=== PATIENT | male | born 1995 | race Caucasian/White ===

== ENCOUNTER 2018-10-24 18:32 | Emergency (ER) | payer SELFPAY ==
[~2018-10-24] VITALS: Ht 188 cm; Wt 77.1 kg
--- OUTSIDE RECORDS SUMMARY | 2018-10-24 18:39 | XMS REPORT ---
Author Author NORA STERLING [facility] eClinicalWorks Address Unknown Phone Unavailable Care Team Providers Care Adult Manager Name Role Phone NORA STERLING CP Unavailable Allergies No Known Allergies Problems Problem Type Condition Code Onset Dates Condition Status Assessment Visit for TB skin test Z11.1 Active Medications No Known Medications Procedures Procedure Coding System Code Date TB INTRADERMAL TEST CPT-4 37117 Aug 08, 2016 Results Name Result Date Reference Range Unit Abnormality Flag TB INTRADERMAL ----INDURATION (mm) 0mm 20160810 0 - 15 mm ----Time Read 1625 20160810 ----Date read 08/10/1620160810 ----Injected by maximiliano Houser [id number] ----Exp. date 20160810 ----Read by Uvaldo 20160810 ----Date injected 08/08/201620160810 ----RESULTS (Pos/Neg) Negative 20160810 ----Time Injected 13:30 20160810 ----Site left arm [id number] ----Lot # [id number] Summary Purpose eClinicalWorks Submission
--- NOTE | 2018-10-24 19:47 | ED GU-Male ---
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 He is not having any swelling redness bruising or dyspareunia or dysuria. He is however having some pain still. He is not used any Tylenol Motrin ice heat etc. He does not have any significant medical problems or take any routine medicines. He occasionally smokes marijuana but he does not smoke or drink cigarettes or alcohol. He just wants to make sure that his groins going to be okay. He rates the pain as a 5 out of 10. Allergies and Home Medications Patient Home Medication List Home Medication List Reviewed: Yes Review of Systems Review of Systems Constitutional: No chills, No diaphoresis EENTM: No ear discharge, No hearing loss Respiratory: No cough, No dyspnea on exertion Cardiovascular: No chest pain, No edema Gastrointestinal: No abdominal pain, No constipation, No diarrhea Past Lxzqqgl-Tcmajt-Vzvifm Hx Patient Social History Alcohol Use: Denies Use Recreational Drug Use: Yes Drug of Choice: marijuana Smoking Status: Never a Smoker Recent Foreign Travel: No Contact w/Someone Who Travel: No Physical Exam Vital Signs Capillary Refill : Height, Weight, BMI Height: '" Weight: lbs. oz. kg; BMI Method: General Appearance: WD/WN, no apparent distress HEENT: PERRL/EOMI, pharynx normal Neck: normal inspection Cardiovascular: normal peripheral pulses, regular rate, rhythm, no edema Genital/Rectal: normal genital exam, other (testicles are even, symmetric, non- ecchymotic nonerythematous nontender and there are no masses palpable. There are no inguinal hernias bilaterally.) Progress/Results/Core Measures Suspected Sepsis SIRS Temperature: Pulse: Respiratory Rate: Blood Pressure / Mean: Results/Orders Vital Signs/I&O Capillary Refill : Progress Note : Time: 19:46 Progress Note No evidence or risk factors for testicular torsion. No evidence of a hematocele or hematoma. We'll recommend conservative therapy and follow-up with urology as needed. Departure Impression Primary Impression: Pain in testicle due to trauma Disposition: HOME, SELF-CARE Condition: Stable Departure-Patient Inst. Decision time for Depature: 19:47 Referrals: NO,LOCAL PHYSICIAN (PCP) Primary Care Physician JENNIE DE JESUS MD Patient Instructions: How to Perform a Testicular Self-Exam Add. Discharge Instructions: If your pain does not improve over the next week or if you start to feel a lump or there is change of color then you should follow-up with the urologist promptly. If your pain is intolerable then you should return to the nearest ER for further evaluation. Use 1000 mg of Tylenol every 8 hours in addition to 800 mg of ibuprofen every 8 hours as needed for pain. You can also use heat and ice to the groin. Work/School Note: Work Release Form Date Seen in the Emergency Department: Oct 24, 2018 Return to Work: Oct 24, 2018 Restrictions: No Restrictions ZEINAB [place] Oct 24, 2018 19:47
[2018-10-24 19:56] VITALS: BP 160/109
== END 2018-10-24 19:56 | disposition home or self-care (01) ==
LOC: ER 18:35
DX: N50.812 Left testicular pain (principal); F12.10 Cannabis abuse, uncomplicated
CPT/HCPCS: 99283